=== PATIENT | male | born 1955 | race Caucasian/White ===

== ENCOUNTER 2021-01-11 22:24 | Emergency (ER) | payer MEDICARE, OTHER ==
[2021-01-11 22:33] VITALS: TEMP 98
--- NOTE | 2021-01-11 23:16 | ED ---
Lower Extremity Injury HPI - General Chief Complaint: Extremity Injury, Lower Stated Complaint: L knee injury Time Seen by Provider: 01/11/21 22:42 Source: patient, family Mode of arrival: wheelchair Limitations: no limitations - History of Present Illness Initial Comments: 65-year-old male patient presents to the emergency department today for evaluation of left knee injury. Patient states he was coming down uneven steps when he slipped and fell. States he injured his knee somehow is not sure the exact mechanism. He denies hitting his head or losing consciousness. States his knee is unable to support him, whenever he attempts to stand it gives out. States that he is unable to straighten the knee on his own, he requires someone else to straighten it for him. Denies any significant pain to the knee. States it is swollen. He denies any numbness or tingling to the leg. Denies any other injuries or concerns. Patient denies any headache, neck pain, back pain, chest pain, shortness of breath, dizziness, weakness, abdominal pain, nausea, vomiting, or difficulties with bowel movements or urination. - Related Data Allergies Allergy/AdvReac Type Severity Reaction Status Date / Time latex Allergy Unknown Verified 01/11/21 22:29 Penicillins Allergy Unknown Verified 01/11/21 22:29 Review of Systems ROS Statement: Those systems with pertinent positive or pertinent negative responses have been documented in the HPI. ROS Other: All systems not noted in ROS Statement are negative. Past Medical History Past Medical History: No Reported History Past Surgical History: No Surgical Hx Reported Past Psychological History: No Psychological Hx Reported Smoking Status: Current every day smoker Past Alcohol Use History: Occasional Past Drug Use History: None Reported General Exam Limitations: no limitations General appearance: alert, in no apparent distress, other (Physical well- developed, well-nourished adult male patient in no acute distress. Vital signs upon presentation temperature 98.2F, pulse 74, respirations 16, blood pressure 154/93, pulse ox 98% on room air.) Respiratory exam: Present: normal lung sounds bilaterally. Absent: respiratory distress, wheezes, rales, rhonchi, stridor Cardiovascular Exam: Present: regular rate, normal rhythm, normal heart sounds. Absent: systolic murmur, diastolic murmur, rubs, gallop, clicks Extremities exam: Present: full ROM, normal capillary refill, other (Soft tissue swelling noted over the left anterior knee. Superficial abrasions to the left lateral knee. Abrasion noted over the distal tib-fib. Skin is otherwise pink, warm, dry. Pedal posttibial pulses 2+. No pain or laxity noted with valgus or varus maneuvers. Negative drawer tests. ). Absent: tenderness, pedal edema, joint swelling, calf tenderness Neurological exam: Present: alert, oriented X3, CN II-XII intact Psychiatric exam: Present: normal affect, normal mood Skin exam: Present: warm, dry, intact, normal color. Absent: rash Course Vital Signs 01/11/21 01/11/21 22:30 23:33 Temperature 98 F Pulse Rate 74 98 Respiratory 16 18 Rate Blood Pressure 154/93 141/78 O2 Sat by Pulse 98 97 Oximetry Medical Decision Making - Medical Decision Making 65-year-old male patient presents to the emergency department today for evaluation of left knee injury. Physical examination did reveal soft tissue swe lling, abrasions to the left lateral knee and to the anterior tib-fib region distally. Neurovascular status was intact. Is able to tolerate passive range of motion. Once that his knee is flexed he is unable to actively extend the leg. X-rays were obtained and were negative. I did discuss possibility of a tendon or ligamentous rupture or injury. He is placed in a knee immobilizer given crutches. He is discharged to follow-up with orthopedic specialty for further evaluation as soon as possible. He is traveling here from [place] but he is given [facility] for follow[facility]. Return parameters were discussed in detail. He verbalizes understanding and agrees with this plan. Case discussed with my attending Dr. Del Toro. - Radiology Data Radiology results: report reviewed, image reviewed 3 views of left knee are obtained. Report is reviewed in its entirety. Impression by Dr. Guzmán shows soft tissue swelling. No fracture. Disposition Clinical Impression: Left knee injury, Tendon rupture, traumatic, patella Disposition: HOME SELF-CARE Condition: Good Instructions (If sedation given, give patient instructions): Knee Pain (ED), Knee Immobilizer (ED) Additional Instructions: Rest, ice, elevate the knee. Use knee immobilizer whenever up moving around and when sleeping. Follow-up with orthopedics as soon as possible. Return to the emergency department for any new, worsening, or concerning symptoms. Is patient prescribed a controlled substance at d/c from ED?: No Referrals: Nonstaff,Physician [REFERRING] - 1-2 days Abdirahman Adam DO [Doctor of Osteopathic Medicine] - 1-2 days Time of Disposition: 23:43
--- NOTE | 2021-01-11 23:19 | XR ---
EXAMINATION TYPE: XR knee complete LT DATE OF EXAM: 01/11/2021 COMPARISON: NONE HISTORY: Twisted knee. Pain. TECHNIQUE: 3 views FINDINGS: There is soft tissue swelling anterior to the patella. I see no fracture nor dislocation. T here is no significant knee joint effusion. Joint spaces are fairly normal. IMPRESSION: Soft tissue swelling. No fracture.
[2021-01-12 00:55] VITALS: BP 141/78; PULSE 98; RESP 18
== END 2021-01-12 00:56 | disposition home or self-care (01) ==
LOC: EC 22:24
DX: S80.212A Abrasion, left knee, initial encounter (principal); S80.812A Abrasion, left lower leg, initial encounter; F17.200 Nicotine dependence, unspecified, uncomplicated; Z88.0 Allergy status to penicillin; W10.9XXA Fall (on) (from) unspecified stairs and steps, initial encounter
CPT/HCPCS: 99284